=== PATIENT | male | born 2000 | race Caucasian/White ===

== ENCOUNTER 2023-10-19 12:40 | Emergency (ER) | payer OTHER, SELFPAY ==
[2023-10-19 12:46] VITALS: BP 154/74
--- NOTE | 2023-10-19 13:25 | ED.GENMED ---
History of Present Illness
General
Chief Complaint: Visual Problem
Source: patient
Exam Limitations: none
Time Seen by Provider: 10/19/23 13:09
Nursing documentation reviewed up to this point in time: agreed with
History of Present Illness
History of Present Illness:
Patient to ED with complaint of vision issues. Reports seeing stars throughout the day, flashes of light. Symptoms started approx 1 year ag and continue to worsen. He was seen by an library consultant 1 mos ago without any abnormal findings. He has
an appointment with ophthalmology at [facility] on Monday but states he now has pain behind his eyes and forehead so he came to ED today. Denies fever/chills, recent illness. No n/v/d. No history of head injury. Brought self to ED for eval.
Past History
Past History
ED Past Medical History: None
ED Past Surgical History: None
Social History
Tobacco: Non-smoker
Alcohol: None
Drug: None
Personal: Single
Living: with family
Review of Systems
Review of Systems
Allergies reviewed?: Yes
All Other Systems: ROS reviewed and negative except as documented in HPI and ROS
Constitutional: Reports no symptoms
EENT: Reports other (stars in vision field)
Respiratory: Reports no symptoms
Cardiac: Reports no symptoms
ABD/GI: Reports no symptoms
: Reports no symptoms
Musculoskeletal: Reports no symptoms
Skin: Reports no symptoms
Neurological: Reports no symptoms
Psychiatric: Reports no symptoms
Phy Exam
General Physical Exam
General Presentation: well appearing and no apparent distress
General age: appears stated age
General Skin: warm and dry
General Habitus: normal
General Mental: alert
General Hydration: appears well hydrated
ENT Exam
ENT Exam: EOMI, TM's normal, neck supple and normocephalic
Eye Exam
Eye Exam: PERRL, EOMI, conjunctiva normal, disc sharp, globe normal and other (Tonometry L 17, R 17)
Neurological Exam
Neurological Exam: alert, oriented x3, CN II-XII intact, no motor deficits, no sensory deficits, speech normal and normal gait
Mental
Mental Status: oriented to person, oriented to place, oriented to time and usual mental status
Describe Speech: normal speech
Cranial
Cranial Nerves: normal and no facial asymetry
EOM (CN3/4/6): intact
Motor
Seizure Activity: none
Gait: normal
Tremors: none
Other Movement Disorders: none
Right upper extremity: 4
Right lower extremity: 4
Left upper extremity: 4
Left lower extremity: 4
Bilateral upper extremities: 4
Bilateral lower extremities: 4
Sensory
Sensory Exam: intact
Cerebellar
Cerebellar Function: normal finger to nose, normal heel to jiang and normal Romberg test
Musculoskeletal Exam
Musculoskeletal Exam: full ROM and neuro vasc intact
Skin Exam
Skin Exam: normal color, warm/dry and no rash
Psychiatric Exam
Psychiatric Exam: normal mood/affect
Course
Orders/Labs/Results
Orders:
Orders
10/19/23 13:11
Tetracaine HCl [Tetracaine 0.5% Ophthalmic Solution] 1 drop .ROUTE .[facility]
10/19/23 13:25
CT Head W/o Iv Contrast Urgent
Comment:
Reason For Exam: vision changes
10/19/23 13:32
Visual Acuity- Treatment ONCE
10/19/23 13:58
CRP [C-Reactive Protein] Urgent
Complete Blood Count/With Diff Urgent
Comprehensive Metabolic Panel Urgent
Lyme Progressive Urgent
Sed Rate [Erythrocyte Sed Rate] Urgent
Abnormal Lab Results
10/19/23
13:58
Total Bilirubin 2.0 H mg/dl
(0.2-1.3)
10/19/23 13:58
10/19/23 13:58
Vital Signs
Initial and Last Documented VS:
Initial Vital Signs
Temp Pulse BP Pulse Ox
98.3 F 56 154/74 100
10/19/23 12:46 10/19/23 12:46 10/19/23 12:46 10/19/23 12:46
Last Documented Vital Signs
Temp Pulse Resp BP Pulse Ox
98.3 F 71 18 154/74 99
10/19/23 12:46 10/19/23 13:51 10/19/23 13:51 10/19/23 12:46 10/19/23 13:51
*Radiology
Radiology exam reviewed: radiology read reviewed
*Pulse Oximetry
Patient hypoxic: no
*Critical Care Note
Total Time (30-74mins, 75-104mins- exclusive of procedures): Not Applicable
Update Note
Update Note:
Patient to ED with complaint of stars in vision, sparkling lights which started 1 year ago and continues to worsen. Feels pressure behind both eyes. Labs, CT reviewed. No concerning findings on exam. Consider occular migraines. Discussed this
with him. He reports having 'migraines' years ago but nothing recent. He has an appointment with opthalmology at [facility] Monday. Recommend fu with neuro also.
ED Attending Note
-
Portions of this chart may have been created with voice recognition software.� Occasional wrong word or��sound alike� substitutions may have occurred due to the inherent limitations of voice recognition software.
Discharge Plan
Departure
Patient Disposition: Home (Routine Discharge)
Date of Disposition: 10/19/23
Time of Disposition: 15:03
Patient with high blood pressure during this ER visit?: No
Condition: Good
Covid-19: Not Applicable
Discharge Problem:
Eye symptoms
Instructions: Migraine in adults
Prescriptions:
No Action
metronidazole 500 mg Tablet
500 mg PO TID Qty: 30 0RF
ciprofloxacin HCl 500 mg Tablet
500 mg PO BID Qty: 20 0RF
Referrals:
Kacie Villafuerte PA-C [Family Provider] -
Activity Restrictions/Additional Instructions:
Follow up with ophthalmology on Monday as scheduled.
Interventions
Interventions:
*Risk Screen - Suicide Last Done: 10/19/23 14:02
*General Assessment Last Done: 10/19/23 14:02
*Neglect/Abuse Screening Last Done: 10/19/23 14:02
ED- Fall Risk Assessment Last Done: 10/19/23 14:02
ED- Neurological Assessment Last Done: 10/19/23 13:46
Discharge Date and Time
Print Language: TAJIK
[2023-10-19 13:44] VITALS: BMI 27.4
[2023-10-19 14:16] LABS: % Basophils 0.5 % (0-2); % Eosinophils 4.2 % (0-6); % Immature Granulocytes 0.5 % (0-0.5); % Lymphocytes 26.2 % (20.5-51.1); % Monocytes 8.4 % (1.7-9.3); % Neutrophils 60.2 % (42.2-75.2); Absolute Eosinophils 0.3 10^3/uL (0-0.7); Absolute Lymphocytes 1.7 10^3/uL (1.2-3.4); Absolute Monocytes 0.5 10^3/uL (0.1-0.6); Absolute Neutrophils 3.9 10^3/uL (1.4-6.5); Hematocrit 41.5 % (39.0-52.0); Hemoglobin 14.4 g/dL (13.0-18.0); Mean Corp Hgb Conc. 34.7 g/dL (33.0-37.0); Mean Corpuscular Hgb 29.4 pg (27.0-31.0); Mean Corpuscular Volume 84.9 fL (80.0-94.0); Mean Platelet Volume 10.1 fL (7.4-10.4); Nucleated Red Blood Cells % 0 % (-); Platelet Count 275 10^3/uL (130-400); Red Blood Cell Count 4.89 10^6/uL (4.70-6.10); Red Cell Dist. Width 12.3 % (11.5-14.5); White Blood Cell Count 6.5 10^3/uL (4.8-10.8)
[2023-10-19 14:38] LABS: ALT (SGPT) 30 U/L (0-50); AST (SGOT) 30 U/L (17-59); Albumin 4.9 g/dl (3.5-5.0); Alkaline Phosphatase 69 U/L (38-126); Blood Urea Nitrogen 14 mg/dl (9-20); Carbon Dioxide 29 mmol/L (22-30); Chloride 102 mmol/L (98-107); Estimated Creatinine Clearance > 125 ml/min; Glucose 75 mg/dl (70-99); Potassium 4.1 mmol/L (3.5-5.1); Sodium 139 mmol/L (135-145); Total Protein 7.8 g/dl (6.3-8.2); eGFR > 60.00
[2023-10-19 14:44] LABS: C-Reactive Protein < 5.00 mg/L (0.0-10.00)
[2023-10-19 14:56] LABS: Erythrocyte Sed Rate 5 mm/hour (0-20)
[2023-10-19 15:30] VITALS: BP 125/67
[2023-10-23 11:36] LABS: Lyme Antibody Screen, EIA Presump. Positive (Negative)
== END 2023-10-19 15:31 | disposition home or self-care (01) ==
LOC: EMR 12:40
PROVIDERS: Nurse Practitioner; EMERGENCY PHYSICIAN Emergency Medicine; FAMILY PHYSICIAN Physician Assistant
DX: H53.8 Other visual disturbances (principal)
CPT/HCPCS: 99284; 70450; 80053; 85025; 85652; 86140; 86617; 86618

== ENCOUNTER → 2024-04-05 14:55 | Outpatient (REF) | payer OTHER, SELFPAY | LOC: RCS 14:55 | PROVIDERS: ATTENDING PHYSICIAN Internal Medicine Cardiovascular Disease; FAMILY PHYSICIAN Physician Assistant | DX: R00.2 Palpitations (principal) | CPT/HCPCS: 93306 ==